=== PATIENT | male | born 1970 | race Caucasian/White ===

== ENCOUNTER 2020-07-29 08:39 | Day surgery (SDC) | payer OTHER ==
[~2020-07-29] VITALS: Ht 170.2 cm; Wt 84.8 kg
[2020-07-29] MEDS ORDERED: LIDOCAINE 2% 100 MG/5 ML UJET TP ONE ×2 (09:50→11:05)
[2020-07-29] MEDS ORDERED: fentaNYL citrate 0.05 MG/ML VIAL ONE (09:50)
[2020-07-29] MEDS ORDERED: fentaNYL citrate 0.05 MG/ML VIAL IVP ONE (11:05)
== END 2020-07-29 10:52 | disposition home or self-care (01) ==
LOC: MMU 08:39 → MDS 08:39
PROVIDERS: ATTEND Internal Medicine Gastroenterology
DX: Z12.11 Encounter for screening for malignant neoplasm of colon (principal); Z79.84 Long term (current) use of oral hypoglycemic drugs; Z79.899 Other long term (current) drug therapy
CPT/HCPCS: 45378; J3010